=== PATIENT | male | born 1995 | race Caucasian/White ===

== ENCOUNTER 2017-10-28 19:52 | Emergency (ER) | payer MEDICAID ==
[~2017-10-28] VITALS: Ht 165.1 cm; Wt 67.0 kg
[2017-10-28] MEDS ORDERED: KETOROLAC 60MG/2ML VIAL IM ONE (23:15)
[2017-10-29 00:44] LABS: BASOPHILS % 0.7 % (0.0-2.0); EOSINOPHILS % 4.7 % (0.0-5.0); HEMATOCRIT. 38.1 % (42.0-52.0); HEMOGLOBIN. 13.4 g/dL (14.0-18.0); LYMPHOCYTES % 44.9 % (20.0-50.0); MEAN CORPUSCULAR HEMOGLOBIN 31.4 pg (28.0-32.0); MEAN CORPUSCULAR VOLUME 89.3 fL (80.0-94.0); MEAN PLATELET VOLUME 8.9 fl (7.4-10.4); MONOCYTES % 9.6 % (2.0-8.0); NEUTROPHILS % 40.1 % (40.0-76.0); PLATELET 193 x1000/uL (130-400); RED BLOOD CELL COUNT 4.27 mill/uL (4.7-6.1); RED CELL DISTRIBUTION WIDTH 12.9 % (11.6-14.6)
[2017-10-29 00:51] LABS: INR 1.1
[2017-10-29 00:57] LABS: CHLORIDE 106 mEq/L (98-107)
[2017-10-29 01:35] VITALS: BP 111/66
== END 2017-10-29 01:45 | disposition home or self-care (01) ==
LOC: ER 19:52
DX: R10.31 Right lower quadrant pain (principal); M79.651 Pain in right thigh; R03.0 Elevated blood-pressure reading, without diagnosis of hypertension; Z91.14 Patient's other noncompliance with medication regimen; Z87.828 Personal history of other (healed) physical injury and trauma
CPT/HCPCS: 36415; 74176; 80053; 83690; 85025; 85610; 96372; 99285; J1885; Z7610